=== PATIENT | female | born 1990 | race Caucasian/White ===

== ENCOUNTER 2021-09-25 11:31 | Emergency (ER) | payer SELFPAY ==
[~2021-09-25] VITALS: Ht 165.1 cm; Wt 84.1 kg
[2021-09-25] MEDS ORDERED: AMOXICILLIN 8751 TAB PO (12:46)
[2021-09-25 13:07] VITALS: BP 123/78; PULSE 69; TEMP 98.3
== END 2021-09-25 13:08 | disposition home or self-care (01) ==
LOC: COL.ER 11:31
DX: S51.832A Puncture wound without foreign body of left forearm, initial encounter (principal); Z23 Encounter for immunization; W54.0XXA Bitten by dog, initial encounter

== ENCOUNTER 2022-01-20 19:05 | Emergency (ER) | payer SELFPAY ==
[~2022-01-20] VITALS: Ht 165.1 cm; Wt 84.1 kg
[~2022-01-20 19:05] MED LIST: AMOXICILLIN 8751 TAB PO
[2022-01-20 19:11] VITALS: BP 129/87; TEMP 98.1
[2022-01-20] MEDS ORDERED: DESYREL 50MG50 MG PO (19:14)
[2022-01-20] MEDS ORDERED: ZOLOFT 100MG100 MG PO (19:14)
[2022-01-20] MEDS ORDERED: STRATTERA 40MG40 MG PO (19:14)
[2022-01-20] MEDS ORDERED: WELLBUTRIN XL150 MG PO (19:14)
[2022-01-20] MEDS ORDERED: ATARAX 25MG25 MG/TAB PO (19:15)
[2022-01-20] MEDS ORDERED: AMOXICILLIN 50500 MG PO (19:36)
[2022-01-20] MEDS ORDERED: NORCO 325 MG-51 TAB PO (19:36)
[2022-01-20 19:44] VITALS: PULSE 80
== END 2022-01-20 19:48 | disposition home or self-care (01) ==
LOC: COL.ER 19:05
DX: H66.92 Otitis media, unspecified, left ear (principal); Z88.1 Allergy status to other antibiotic agents

== ENCOUNTER 2022-02-11 10:37 | Emergency (ER) | payer SELFPAY ==
[~2022-02-11] VITALS: Ht 165.1 cm; Wt 86.4 kg
[~2022-02-11 10:37] MED LIST changes: +AMOXICILLIN 50500 MG PO; +ATARAX 25MG25 MG/TAB PO; +DESYREL 50MG50 MG PO; +NORCO 325 MG-51 TAB PO; +STRATTERA 40MG40 MG PO; +WELLBUTRIN XL150 MG PO; +ZOLOFT 100MG100 MG PO
[2022-02-11 10:50] VITALS: TEMP 98.2
[2022-02-11 11:50] VITALS: BP 120/79; PULSE 81
== END 2022-02-11 12:11 | disposition home or self-care (01) ==
LOC: COL.ER 10:37
DX: R51.9 Headache, unspecified (principal)
CPT/HCPCS: J1200; J1885; J2405

== ENCOUNTER 2022-10-23 12:21 | Emergency (ER) | payer SELFPAY ==
[~2022-10-23] VITALS: Ht 165.1 cm; Wt 86.6 kg
[2022-10-23 12:25] VITALS: BP 132/76
[2022-10-23 12:52] LABS: COLLECTION METHOD CLEAN CATCH
[2022-10-23 12:59] LABS: MUCOUS Present (NOT PRESENT); URINE BACTERIA Rare /hpf (NONE SEEN); URINE RBC >50 /hpf (0-2)
[2022-10-23 13:00] LABS: URINE APPEARANCE Cloudy (CLEAR/HAZY); URINE BLOOD 3+ (NEGATIVE); URINE COLOR Yellow (YELLOW); URINE GLUCOSE Negative (NEGATIVE); URINE KETONE TRACE (NEGATIVE); URINE NITRATE Positive (NEGATIVE); URINE PROTEIN(semi-quant) 3+ (NEGATIVE); URINE UROBILINOGEN 0.2 E.U/dL (0.2-1.0)
[2022-10-23] MEDS ORDERED: OMNICEF 300MG300 MG PO (13:33)
[2022-10-23 13:58] VITALS: PULSE 84; TEMP 99.1
== END 2022-10-23 13:58 | disposition home or self-care (01) ==
LOC: COL.ER 12:21
PROVIDERS: Emergency Medicine
DX: N39.0 Urinary tract infection, site not specified (principal); Z88.1 Allergy status to other antibiotic agents